=== PATIENT | female | born 1955 | race Caucasian/White ===

== ENCOUNTER 2020-05-10 15:35 | Outpatient (RCR) | payer OTHER, SELFPAY ==
[2020-05-10] MEDS: COVID-19 VACC, MRNA(PFIZER)/PF 30 MCG/0.3 ML SYRINGE IM (07:14)
[2020-05-31] MEDS: COVID-19 VACC, MRNA(PFIZER)/PF 30 MCG/0.3 ML SYRINGE IM (07:04)
== END 2020-08-02 23:59 ==
LOC: IMMUN 15:35
PROVIDERS: PCP Internal Medicine; Referring Provider Family Medicine; Visit Provider Family Medicine
DX: Z23 Encounter for immunization (principal)
CPT/HCPCS: 0001A; 0002A; 91300